=== PATIENT | female | born 1950 | race Caucasian/White ===

== ENCOUNTER 2023-02-16 22:06 | Emergency (ER) | payer OTHER ==
[~2023-02-16] VITALS: Ht 152.4 cm; Wt 68.0 kg
[2023-02-16 22:10] VITALS: BP 140/83
--- NOTE | 2023-02-16 22:10 | NUR ---
TO BED AMBULATORY
[2023-02-16 23:06] LABS: BASOPHILS # (AUTO) 0.1 K/uL (0.00-0.22); BASOPHILS % (AUTO) 1.3 % (0.0-2.0); EOSINOPHILS # (AUTO) 0.3 K/uL (0-0.4); EOSINOPHILS % (AUTO) 4.4 % (0.0-4.0); HEMATOCRIT 37.9 % (36-48); HEMOGLOBIN 12.6 g/dL (12.0-16.0); LYMPHOCYTES # (AUTO) 2.8 K/uL (2.5-16.5); LYMPHOCYTES % (AUTO) 38.4 % (20.5-51.1); MEAN CORPUSCULAR HEMOGLOBIN 29 pg (27-31); MEAN CORPUSCULAR HGB CONC 33 g/dL (33-37); MEAN CORPUSCULAR VOLUME 87.9 fL (80-94); MONOCYTES # (AUTO) 0.6 K/uL (0.8-1.0); MONOCYTES % (AUTO) 7.9 % (1.7-9.3); NEUTROPHILS # (AUTO) 3.5 K/uL (1.8-7.7); PLATELET COUNT (AUTO) 340 K/uL (140-450); RED BLOOD CELL COUNT(AUTO) 4.31 MIL/uL (4.20-5.40); RED CELL DISTRIBUTION WIDTH 15.3 % (11.6-13.7); WHITE BLOOD COUNT (AUTO) 7.2 K/uL (4.8-10.8)
[2023-02-16 23:32] LABS: ALBUMIN 3.8 g/dL (3.4-5.0); ANION GAP 13.3 (8-16); CARBON DIOXIDE 25.6 mmol/L (21-32); POTASSIUM 3.9 mmol/L (3.5-5.1); TOTAL BILIRUBIN 0.6 mg/dL (0.0-1.0)
--- NOTE | 2023-02-16 23:55 | NUR ---
Dr. Kent explained results and treatment plans.
[2023-02-17] MEDS ORDERED: LISI-486 PO (00:02)
[2023-02-17 00:14] VITALS: BP 134/78
--- NOTE | 2023-02-17 00:14 | NUR ---
Patient discharged with v/s stable. Written and verbal after care instructions given and explained. Patient alert, oriented and verbalized understanding of instructions. Ambulatory with steady gait. All questions addressed prior to discharge. ID band removed. Patient advised to follow up with PMD. Rx of Zestril given. Patient educated on indication of medication including possible reaction and side effects. Opportunity to ask questions provided and answered.
== END 2023-02-17 00:14 | disposition home or self-care (01) ==
LOC: MED 22:06
DX: I10 Essential (primary) hypertension (principal); Z76.0 Encounter for issue of repeat prescription; Z88.8 Allergy status to other drugs, medicaments and biological substances; Z79.899 Other long term (current) drug therapy
CPT/HCPCS: 36415; 80053; 83880; 84484; 85025; 99283

== ENCOUNTER 2023-03-29 10:47 | Emergency (ER) | payer MEDICARE, OTHER ==
[~2023-03-29] VITALS: Ht 149.9 cm; Wt 68.9 kg
[~2023-03-29 10:47] MED LIST: LISI-486 PO
[2023-03-29 11:04] VITALS: BP 122/61
[2023-03-29] MEDS ORDERED: OMEP20EC11 PO (11:09)
--- NOTE | 2023-03-29 11:29 | NUR ---
PT BIB FAMILY, C/O ABD PAIN, NAUSEA, LOSS OF APPETITE, CONSTIPATION X 2WKS, SEEN AT [facility] 2 DYS AGO, DUCOLAX GIVEN PT STATES NO BM. NAD. HX: NA ALLERGIES: CLONAZEPAM
[2023-03-29 12:48] LABS: APPEARANCE,URINE CLEAR (CLEAR); BILIRUBIN,URINE NEGATIVE (NEGATIVE); BLOOD, URINE 2+ (NEGATIVE); COLOR,URINE YELLOW (YELLOW); LEUKOCYTE ESTERASE ,URINE TRACE (NEGATIVE); NITRITE, URINE NEGATIVE (NEGATIVE); UGLUCOSE NEGATIVE (NEGATIVE)
[2023-03-29 13:08] LABS: BASOPHILS % (AUTO) 0.5 % (0.0-2.0); EOSINOPHILS # (AUTO) 0.1 K/uL (0-0.4); EOSINOPHILS % (AUTO) 1.1 % (0.0-4.0); HEMATOCRIT 33.5 % (36-48); HEMOGLOBIN 11.2 g/dL (12.0-16.0); LYMPHOCYTES # (AUTO) 1.1 K/uL (2.5-16.5); LYMPHOCYTES % (AUTO) 13.8 % (20.5-51.1); MEAN CORPUSCULAR HEMOGLOBIN 29 pg (27-31); MEAN CORPUSCULAR HGB CONC 34 g/dL (33-37); MEAN CORPUSCULAR VOLUME 87.5 fL (80-94); MONOCYTES # (AUTO) 0.9 K/uL (0.8-1.0); MONOCYTES % (AUTO) 11.1 % (1.7-9.3); NEUTROPHILS # (AUTO) 5.9 K/uL (1.8-7.7); NEUTROPHILS % (AUTO) 73.5 % (42.2-75.2); PLATELET COUNT (AUTO) 258 K/uL (140-450); RED BLOOD CELL COUNT(AUTO) 3.83 MIL/uL (4.20-5.40); RED CELL DISTRIBUTION WIDTH 14.6 % (11.6-13.7)
[2023-03-29 13:37] LABS: ALBUMIN 2.8 g/dL (3.4-5.0); ANION GAP 9.5 (8-16); ASPARTATE AMINOTRANSFERASE 30 U/L (15-37); CARBON DIOXIDE 28.5 mmol/L (21-32); CHLORIDE 98 mmol/L (98-107); CREATININE 0.9 mg/dL (0.6-1.3); GLUCOSE 102 mg/dL (74-106); LIPASE 46 U/L (73-393); SODIUM SERUM 132 mmol/L (136-145); TOTAL BILIRUBIN 0.9 mg/dL (0.0-1.0); UREA NITROGEN, BLOOD 21 mg/dL (7-18)
[2023-03-29] MEDS ORDERED: CEPH-588 PO (13:42)
[2023-03-29] MEDS ORDERED: POLY17PD50 PO (13:42)
[2023-03-29] MEDS ORDERED: OMEP40EC23 PO (13:43)
[2023-03-29] MEDS ORDERED: ONDA-188 SL (13:49)
--- NOTE | 2023-03-29 14:00 | NUR ---
Patient discharged with v/s stable. Written and verbal after care instructions given and explained. Patient alert, oriented and verbalized understanding of instructions. Ambulatory with steady gait. All questions addressed prior to discharge. ID band removed. Patient advised to follow up with PMD. Rx of keflex, prilosec, clearlax given. Patient educated on indication of medication including possible reaction and side effects. Opportunity to ask questions provided and answered.
== END 2023-03-29 13:59 | disposition home or self-care (01) ==
LOC: MED 10:47
DX: K59.00 Constipation, unspecified (principal); N12 Tubulo-interstitial nephritis, not specified as acute or chronic; I10 Essential (primary) hypertension; Z79.899 Other long term (current) drug therapy; Z88.1 Allergy status to other antibiotic agents; Z98.890 Other specified postprocedural states
CPT/HCPCS: 36415; 80053; 81001; 83690; 84484; 85025; 87086; 93005; 99283; 99285